=== PATIENT | male | born 2000 | race Two or more races ===

== ENCOUNTER 2025-02-04 07:19 | Emergency (ER) | payer BC, OTHER ==
[~2025-02-04] VITALS: Ht 188 cm; Wt 145.4 kg
[2025-02-04 07:59] VITALS: BP 149/82; PULSE 98; RESP 17; TEMP 98.4; O2SAT 98
--- NOTE | 2025-02-04 08:11 | ED.PDOC ---
Musculoskeletal HPI Comments 24 year old male presents to the ED with the c/c of Left Lower Extremity pain. Pt stats that he was at work pushing a metal cart w/ he hit theTibial region against a cart. Pt states that his pain has been onset for the past 3x days with no alleviating factors at this time. Aggravated with amulation and alleviated at rest. Pt Denies fever, SOB, chest pain, abdominal pain, nausea, vomiting, diarrhea, headache, dizziness, vision changes, or numbness/tingling of extremities. No other symptoms or modifying factors reported at this time. Patient is alert and oriented x4 and has a stable gait. Chief Complaint: Lower Extremity Time Seen by MD: 08:04 Reviewed Notes: Nurses Notes, Medications, Allergies Allergies: Coded Allergies: NO KNOWN ALLERGIES (Unverified , 02/04/25) Home Meds Active Scripts Ibuprofen (Ibuprofen) 600 Mg Tab, 1 TAB PO TID for 10 Days, #30 TAB 0 Refills Prov:USHA DHILLON NP 02/04/25 Doxycycline Hyclate (DOXYCYCLINE HYCLATE) 100 Mg Tab, 1 TAB PO BID for 7 Days, #14 TAB 0 Refills Prov:USHA DHILLON NP 02/04/25 Information Source: Patient Mode of Arrival: Ambulatory Location: Left Extremity Location: Femur Timing: Days Prehospital treatment: None Severity: Moderate Able to Move Extremity: Yes Bear Weight: Fully Pain: Moderate Mechanism: Stubbing Circumstances: Work Related Onset of Symptoms: After Trauma Symptoms: Swelling, Pain, Erythema, Warmth DVT Risk Factors: NONE Associated signs and symptoms: Swelling, Fever Past Medical History PAST MEDICAL HISTORY: Denies Surgical History: Denies all surgeries Family History Family History: Reviewed,noncontributory to illness, No family hx of Cancer, No family hx of DM, No family hx of Heart gia, No family hx of HTN, No family hx ofKidney gia, No family hx of Liver gai, No family hx of Lung gia, No family hx of Stroke Social History Smoker: Non-Smoker Alcohol: Rarely Drugs: Marijuana Lives In: Home Constitutional: denies: chills, diaphoresis, fatigue, fever, malaise, sweats, weakness, others EENTM: denies: blurred vision, double vision, ear bleeding, ear discharge, ear drainage, ear pain, ear ringing, eye pain, eye redness, hearing loss, mouth pain, mouth swelling, nasal discharge, nose bleeding, nose congestion, nose pain, photophobia, tearing, throat pain, throat swelling, voice changes, others Respiratory: denies: cough, hemoptysis, orthopnea, SOB at rest, shortness of breath, SOB with excertion, stridor, wheezing, others Cardiovascular: denies: chest pain, dizzy spells, diaphoresis, Dyspnea on exertion, edema, irregular heart beat, left arm pain, lightheadedness, palpitations, PND, syncope, others Gastrointestinal: denies: abdomen distended, abdominal pain, blood streaked bowels, constipated, diarrhea, dysphagia, difficulty swallowing, hematemesis, melena, nausea, poor appetite, poor fluid intake, rectal bleeding, rectal pain, vomiting, others Genitourinary: denies: burning, dysuria, flank pain, frequency, hematuria, incontinence, penile discharge, penile sore, pain, testicle pain, testicle swelling, urgency, others Neurological: denies: dizziness, fainting, headache, left sided numbness, left sided weakness, numbness, paresthesia, pre-existing deficit, right sided numbness, right sided weakness, seizure, speech problems, tingling, tremors, weakness, others Musculoskeletal: reports: others (Left anterial tibial pain); denies: back pain, gout, joint pain, joint swelling, muscle pain, muscle stiffness, neck pain Integumetry: denies: bruises, change in color, change in hair/nails, dryness, laceration, lesions, lumps, rash, wounds, others Allergic/Immunocompromised: denies: Difficulty Healing, Frequent Infections, Hives, Itching, others Hematologic/Lymphatic: denies: anemia, blood clots, easy bleeding, easy bruising, swollen glands, others Endocrine: denies: excessive hunger, excessive sweating, excessive thirst, excessive urination, flushing, intolerance to cold, intolerance to heat, unexplained weight gain, unexplained weight loss, others Psychiatric: denies: anxiety, bipolar disorder, depression, hopeless, panic disorder, schizophrenia, sleepless, suicidal, others All Other Systems: Reviewed and Negative Physical Exam General Appearance: No Apparent Distress, Normal, Obese HEENT: Normal ENT Inspection Neck: Full Range of Motion, Non-Tender, Normal, Normal Inspection Respiratory: Chest Non-Tender, Lungs Clear, No Respiratory Distress Cardiovascular: No JVD, No Murmur, Normal Peripheral Pulses Breast Exam: Deferred Gastrointestinal: No Organomegaly, Non Tender, No Pulsatile Mass, Normal Bowel Sounds, Soft Genitalia: Deferred Pelvic: Deferred Rectal: Deferred Extremities: No calf tenderness, Normal capillary refill, Normal inspection, Normal range of motion, Non-tender, No pedal edema, Pedal edema Musculoskeletal : Location: Left Extremity Location: Tibia (see image for note) Apperance: Normal Neurologic: Alert, No Motor Deficits, Normal Mood Cerebellar Function: Normal Reflexes: Normal Skin: Dry, Normal Color, Warm Lymphatic: No Adenopathy Was a procedure done? Was a procedure done?: No Images 1 - Noted that there is swelling, redness, and warm to the touch. Site is around 3-4cm in diameter, no pain noted, full ROM, with mild fluctuance. Differential Diagnosis EXT Differential Diagnosis: Cellulitis, Sprain X-Ray, Labs, Meds, VS Vital Signs Date Time Temp Pulse Resp B/P (MAP) Pulse Ox O2 Delivery O2 Flow Rate FiO2 02/04/25 07:59 98 17 98 Room Air 02/04/25 07:59 98.4 99 17 149/82 (104) 98 98.4 02/04/25 07:29 98.1 104 20 154/87 (109) 98 98.1 Current Medications Medications (Trade) Dose Ordered Sig/April Route Start Time Stop Time Status Last Admin Ceftriaxone Sodium (Rocephin) 1,000 mg ONCE ONCE IM 02/04/25 08:15 02/04/25 08:16 DC 02/04/25 08:19 PATIENT: PHYLLIS RAMESH ACCT: [id number] UNIT: [id number] : 2000 LOC: ER ROOM / BED: / AGE / SEX: 24 / M ADM STATUS: REG ER SERVICE [id number] ORDERING PHYSICIAN: USHA DHILLON NP PROCEDURE(s): LLEXT - LEFT LOWER EXTREMITY ULTRASOUN REASON: r/o abscess formation ORDER NUMBER(s): [id number], ACCESSION NUMBER(s): [id number] Exam: US LEFT LOWER EXTREMITY ULTRASOUN Clinical History: r/o abscess formation Comparison: None Technique: Targeted sonographic evaluation of the soft tissues of the left lower leg was obtained utilizing grayscale and color Doppler imaging. Findings/Impression: Probable hematoma corresponding to region of interest measuring 1.0 x 1.6 cm. X-Ray, Labs, Meds, VS Comment History and findings consistent with cellulitis. The area of infection does not appear to have any loculations/induration based on physical exam. The patient did not require an incision and drainage. Patient well appearing. VSS. Given History, Exam, and Workup I have low suspicion for Necrotizing Fasciitis, Abscess, Osteomyelitis, DVT or other emergent problem as a cause for this presentation. Low risk for treatment failure based on history. Prescribed p.o. antibiotics for presentation of symptoms Complete course of antibiotic therapy even if symptoms improve or resolve. There should be no leftover antibiotics as this can lead to antibiotic resistant bacteria and even worse infection. Patient verbalized understanding. Potential side effects discussed with patient including abdominal pain, nausea, diarrhea. Recommended probiotics and return precautions given Persistent diarrhea Dehydration Blood in stool Ill-appearing The patient was advised to return 24-48 hours for wound check. Sooner if symptoms worsen. Additional MDM Review of External, Non-ED records: External records reviewed. Discussion with independent historian (EMS, family) history obtained from the patient at bedside Chronic conditions affecting care: none Social determinants of health affecting care: none Consideration of admission (observation or admission): I considered escalation of care to admission for this patient, however given the reassuring workup, the patient is safe for outpatient management. Time of 1ST Reevaluation: 08:35 Reevaluation 1ST: Unchanged Time of 2ND Reevaluation: 08:58 Reevaluation 2ND: Improved Patient Education/Counseling: Diagnosis, Treatment Family Education/Counseling: No Family Present Departure 1 Departure Time of Disposition: 09:01 Impression: Primary Impression: Cellulitis of left leg Disposition: 01 HOME / SELF CARE / HOMELESS Condition: Fair Additional Instructions: Discharge Note: Continue on your medications. Do not drive when taking narcotics. Drink plenty of fluids. Follow up with your primary Dr. Take your prescriptions as ordered. If your condition becomes worse call and follow up with your primary Dr. for instructions or return to the ER if needed. Keep wound clean and dry. Have a wound check in 2 days. Thank you for visiting [facility]. e-Prescriptions Ibuprofen (Ibuprofen) 600 Mg Tab 1 TAB PO TID for 10 Days, #30 TAB 0 Refills Prov: USHA DHILLON NP 02/04/25 Doxycycline Hyclate (DOXYCYCLINE HYCLATE) 100 Mg Tab 1 TAB PO BID for 7 Days, #14 TAB 0 Refills Prov: USHA DHILLON NP 02/04/25 Critical Care Note Critical Care Time?: No Stability Stability form required: No Heart Score Heart Score: Heart Score Response (Comments) Value History N/A 0 EKG N/A 0 Age N/A 0 Risk Factors N/A 0 Troponin N/A 0 Total 0 I personally scribed for USHA DHILLON NP ([email or web address]) on 02/04/25 at 08:11. Electronically submitted by Andry Nieves ([email or web address]). I personally scribed for USHA DHILLON NP ([email or web address]) on 02/04/25 at 09:02. Electronically submitted by Andry Nieves ([email or web address]). USHA DHILLON NP February 04, 2025 08:11
[2025-02-04] MEDS: cefTRIAXone SOD 1,000 MG VL IM ONE (08:19)
--- NOTE | 2025-02-04 08:55 | DVH ---
Exam: US LEFT LOWER EXTREMITY ULTRASOUN Clinical History: r/o abscess formation Comparison: None Technique: Targeted sonographic evaluation of the soft tissues of the left lower leg was obtained utilizing gra yscale and color Doppler imaging. Findings/Impression: Probable hematoma corresponding to region of interest measuring 1.0 x 1.6 cm.
[2025-02-04] MEDS ORDERED: DOXY-286 PO (09:01)
[2025-02-04] MEDS ORDERED: IBUP-1454 PO (09:01)
== END 2025-02-04 09:04 | disposition home or self-care (01) ==
LOC: ER 07:19
DX: L03.116 Cellulitis of left lower limb (principal); F12.90 Cannabis use, unspecified, uncomplicated; Z79.1 Long term (current) use of non-steroidal anti-inflammatories (NSAID); Z79.899 Other long term (current) drug therapy
CPT/HCPCS: 93926; 96372; 99285; J0696